=== PATIENT | female | born 1940 | race Caucasian/White ===

== ENCOUNTER 2025-06-28 09:57 | Emergency (ER) | payer MEDICARE, MEDICAID, SELFPAY ==
[2025-06-28] VITALS (8 sets, daily range): BP systolic 126–166; BP diastolic 53–66; PULSE 62–84; RESP 13–18; TEMP 36.8–36.9; O2SAT 91–98; BMI 23.2
--- NOTE | 2025-06-28 11:23 | [facility].EDGENADL ---
Discharge Plan Disposition Patient Disposition: Home, Self-Care Condition: Good Referrals Follow up/Referrals: Jennifer Ponce MD [Primary Care Provider, Medical] - See instructions Clinical Impressions Clinical Impression: Near syncope Instructions Patient Instructions: DI for Syncope in Adults (Fainting) Print Language Print Language: Estonian Discharge ED Provider: Salvador Marroquin JR General Adult HPI General Chief complaint: Dizziness Stated complaint: Near syncope Time Seen by Provider: 06/28/25 11:16 Mode of Arrival: EMS Source of Information: Patient and EMS Description of Symptoms (Recalled from ER Triage Doc. by RN): PATIENT PRESENTS TO ED FOR NEAR-SYNCOPAL EPISODE THIS MORNING. REPORTS SHE HAS NOT FELT WELL THIS MORNING, HAD SOME DIZZINESS AND NAUSEA. PT STATES DAUGHTER AND SON WERE AT HER HOUSE AND PT WENT BACKWARD BUT DID NOT HAVE LOC. DAUGHTER REPORTS HYPOTENSIVE AND BRADYCARDIC EPISODE THAT HAS SINCE RESOLVED. History of Present Illness HPI narrative: 84-year-old female with history of previous stroke currently on Eliquis presents for near syncope. Patient woke up feeling a general fogginess Related Data Allergies Allergy/AdvReac Type Severity Reaction Status Date / Time amlodipine Allergy Other Verified 06/28/25 10:26 [facility] Disclaimer: The information contained in this section may have been updated after the patient was seen, as this information can be updated by other users. Social History Smoking Status: Never smoker Have you lived/traveled outside [place] in past 30 days?: No Contact w/someone who lives/traveled outside [place] past 30 days?: No Exposure to someone with infectious disease in past 14 days?: No Do you have a fever (greater than 100.4 F or 38 C)?: No Have you tested positive for COVID-19?: No Exposed to someone with COVID-19 in past 14 days?: No Do you have a sore throat?: No Do you have a cough?: No Do you have any weakness?: No Do you have any diarrhea?: No Are you experiencing any unusual bleeding?: No Do you have any muscle aches/pain?: No Do you have any abdominal pain?: No Are you experiencing loss of taste or smell?: No Medical Decision Making Medical Records Screening: Per USPSTF and CDC recommendations, given the prevalence of disease in our region, it is our hospital?s policy to screen for HIV and viral Hepatitis for all patients aged 18 and over and those with ongoing risk factors. Vital Signs: 06/28/25 09:50 06/28/25 09:50 06/28/25 10:00 Temperature 98.5 F 98.5 F Temperature Source Oral Pulse Rate 66 62 Pulse Rate [Right] 66 Respiratory Rate 14 14 13 Blood Pressure 164/66 H 151/54 H Blood Pressure [Left Arm] 164/66 H Blood Pressure Mean [Left Arm] 98 02 Sat by Pulse Oximetry 97 97 93 L Oxygen Delivery Method Room Air 06/28/25 10:30 06/28/25 11:00 06/28/25 11:31 Temperature Temperature Source Pulse Rate 66 63 64 Pulse Rate [Right] Respiratory Rate 18 14 13 Blood Pressure 151/59 H 130/56 L 126/53 L Blood Pressure [Left Arm] Blood Pressure Mean [Left Arm] 02 Sat by Pulse Oximetry 98 96 91 L Oxygen Delivery Method Room Air Room Air Room Air 06/28/25 12:01 06/28/25 12:31 Temperature Temperature Source Pulse Rate 64 65 Pulse Rate [Right] Respiratory Rate 17 16 Blood Pressure 147/64 H 156/66 H Blood Pressure [Left Arm] Blood Pressure Mean [Left Arm] 02 Sat by Pulse Oximetry 95 94 L Oxygen Delivery Method Room Air Room Air Lab Data Lab Results 06/28/25 09:30: WBC 5.4, RBC 4.10 L, Hgb 12.5, Hct 37.0, MCV 90.2, MCH 30.5, MCHC 33.8, RDW 13.0, Plt Count 248, MPV 9.3, Neut % (Auto) 63.3, Lymph % (Auto) 25.6, [place] % (Auto) 8.6, Eos % (Auto) 1.7, Baso % (Auto) 0.4, Neut # (Auto) 3.5, Lymph # (Auto) 1.4, [place] # (Auto) 0.5, Eos # (Auto) 0.1, Baso # (Auto) 0.0, Sodium 131 L, Potassium 4.9, Chloride 92 L, Carbon Dioxide 28, Anion Gap 15.9 H, BUN 19 H, Creatinine 1.00, Estimated Creat Clear 35, Estimated GFR 53 L, Est GFR ( Amer) 64, Glucose 142 H, Calcium 9.5, Total Bilirubin 0.8, AST 32, ALT 30, Alkaline Phosphatase 96, Total Protein 6.9, Albumin 4.2, Globulin 2.7, Albumin/Globulin Ratio 1.6 06/28/25 09:30 06/28/25 09:30 Orders (Tests/Meds): ED MEDICATIONS Discontinued Medications Generic Name Dose Route Start Last Admin Trade Name Freq PRN Reason Stop Dose Admin Lactated Ringer's 500 mls @ 999 mls/hr 06/28/25 11:22 06/28/25 12:37 Lactated Ringer's 1000 Ml Bag IV 06/28/25 11:52 Infused .Q31M ONE Infusion ORDERS Category Date Time Status Complete Blood Count Auto Diff Stat Lab 06/28/25 09:30 Completed Comprehensive Metabolic Panel Stat Lab 06/28/25 09:30 Completed Medical Decision Narrative: EKG reviewed and independently interpreted, significant for normal sinus rhythm, no ST elevation, no STEMI Labs reviewed and independently interpreted, significant for slightly elevated anion gap. Patient given IV fluids. Otherwise no other abnormalities. Patient has remained afebrile, hemodynamically stable, in no acute distress throughout the course of ED stay. Etiology likely near syncope of unknown etiology. Has close follow-up with primary care provider. No need for CT imaging of the head at this time, no headache, blurry vision, dizziness, focal deficits. Patient is not hypoxic, in respiratory distress, or tachycardic. Very low concern for PE.
[2025-06-28 11:33] LABS: Hematocrit 37.0 % (37.0-47.0); Hemoglobin 12.5 g/dL (12.2-16.2); Immature Granulocytes % 0.4 %; Mean Corpuscular HGB Conc 33.8 g/dL (31.8-35.4); Mean Corpuscular Hemoglobin 30.5 pg (27.0-31.2); Mean Corpuscular Volume 90.2 fl (81-99); Nucleated Red Blood Cells % 0 %; Platelet Count 248 K/mm3 (142-424); Red Blood Count 4.10 M/mm3 (4.20-5.40); Red Cell Distribution Width-SD 43.2 fL; White Blood Count 5.4 K/mm3 (4.8-10.8)
[2025-06-28 11:35] LABS: Alanine Aminotransferase 30 U/L (12-78); Albumin Level 4.2 g/dl (3.5-5.0); Albumin/Globulin Ratio 1.6 (1.1-1.8); Alkaline Phosphatase 96 U/L (38-126); Anion Gap 15.9 mEq/L (5-15); Aspartate Amino Transferase 32 U/L (14-36); Bilirubin,Total 0.8 mg/dl (0.2-1.3); Blood Urea Nitrogen 19 mg/dl (7-17); Calcium 9.5 mg/dl (8.4-10.2); Carbon Dioxide 28 mmol/L (22.0-30.0); Chloride 92 mmol/L (98-107); Creatinine Clearance Estimated 35 mL/min (50-200); Creatinine,Serum 1.00 mg/dl (0.52-1.04); Estimated Glomerular Filt Rate 53 ml/min (>60); GFR (African American) 64 ML/MIN (>60); Globulin 2.7 g/dL (1.3-3.2); Glucose 142 mg/dl (74-100); Potassium 4.9 mmoL/L (3.5-5.1); Sodium 131 mmol/L (136-145); Total Protein,Serum 6.9 g/dl (6.3-8.2)
[2025-06-28] MEDS: LACTATED RINGERS 1000ML 500 ML 999 ML IV (11:45)
== END 2025-06-28 13:49 | disposition home or self-care (01) ==
PROVIDERS: Emergency Provider Student in an Organized Health Care Education/Training Program; PCP Internal Medicine
DX: R55 Syncope and collapse (principal); E87.1 Hypo-osmolality and hyponatremia; R11.0 Nausea; R42 Dizziness and giddiness; Z86.73 Personal history of transient ischemic attack (TIA), and cerebral infarction without residual deficits; Z79.01 Long term (current) use of anticoagulants
CPT/HCPCS: 80053; 85025; 93005; 99284; 99285; J7120